=== PATIENT | female | born 1950 | race Caucasian/White ===

== ENCOUNTER 2022-12-18 21:03 | Emergency (ER) | payer OTHER, SELFPAY ==
[2022-12-18 21:20] VITALS: BP 127/70; PULSE 66; RESP 16; TEMP 36.1; O2SAT 96; BMI 24.7
--- NOTE | 2022-12-18 21:21 | CRLHL7_ITS ---
For Patients: As a result of the Century Cures Act, medical imaging exams and procedure reports are released immediately into your electronic medical record. You may view this report before your referring provider. If you have questions, please contact your health care provider. INDICATION: Shortness of breath. Cough. TECHNIQUE: Chest 1 view. COMPARISON: None. FINDINGS: The cardiomediastinal silhouette size is normal. There is no focal pulmonary opacity, pleural effusion or pneumothorax. The visualized osseous structures are unremarkable for age. Impression: No acute cardiopulmonary abnormality. Dictated by Soledad Dubois MD @ 12/18/2022 9:55:14 PM (Electronically Signed)
[2022-12-18 22:04] LABS: Basophils Percent Auto 0.5 % (0.0-3.0); Hematocrit 37.9 % (33.0-51.0); Hemoglobin* 12.9 gm/dL (12.0-16.0); Immature Granulocytes Pct Auto 0.2 %; Mean Corpuscular HGB Conc 34 gm/dL (32-36); Mean Corpuscular Hemoglobin 30 pg (26-34); Mean Corpuscular Volume 88 fL (80-100); Monocytes Percent Auto 8.2 % (0.0-11.0); Neutrophils Percent Auto 78.1 % (42.0-72.0); Platelet Count* 149 K/uL (140-440); RDW Coefficient of Variation % 12.8 % (11.5-15.5); Red Blood Count 4.31 m/uL (4.00-5.20); White Blood Count* 4.15 K/uL (4.50-11.00)
[2022-12-18 22:06] LABS: Slide Review Reflex No
[2022-12-18 22:11] LABS: Chloride* 98 mmol/L (96-114); Potassium* 3.6 mmol/L (3.6-5.1); Sodium* 128 mmol/L (135-149)
[2022-12-18 22:13] LABS: Creatinine* 0.5 mg/dL (0.5-1.5); Estimated Glomerular Filt Rate 101 ml/min
[2022-12-18 22:14] LABS: Anion Gap 10 mEq/L (7-15); Blood Urea Nitrogen* 7 mg/dL (7-30); Carbon Dioxide* 20 mmol/L (20-32); Glucose* 113 mg/dL (60-115)
[2022-12-18 22:15] LABS: Calcium* 8.7 mg/dL (8.4-10.6)
[2022-12-18 22:17] LABS: C Reactive Protein* 0.6 mg/dL (0.5-1.0)
--- NOTE | 2022-12-18 22:18 | ED.GENADULT ---
HPI - General Adult General Date Seen: 12/18/22 Chief complaint: Cough Stated complaint: cough, headache Time Seen by Provider: 12/18/22 21:27 Source: patient Mode of arrival: ambulatory Limitations: no limitations History of Present Illness HPI narrative: Patient is a 72-year-old who presents saying that she has felt unwell for 2 days, sore throat, body aches, fatigue, cough, and she is worried she has COVID. She did not do a test at home. Generally healthy, no significant medications. No underlying pulmonary disease, does not smoke. No fevers or chills, no vomiting but her appetite been decreased. Related Data Previous Rx's Medication Instructions Recorded nirmatrelvir 300 mg (150 mg See Rx Instructions PO .COMPLEX 12/18/22 x2)-ritonavir 100 mg tablet,dose #30 ea pack (Paxlovid) Allergies Allergy/AdvReac Type Severity Reaction Status Date / Time fosimax Allergy Uncoded 12/18/22 21:25 Review of Systems Status of ROS: Reports: 10 or more systems reviewed and unremarkable except as noted in History and below PFSH [facility] Social History Smoking Status: Never smoker Do you use any of these nicotine containing products: None How often do you have a drink containing alcohol: never AUDIT-C Alcohol total score: 0 Non-prescribed substance use: denies use Exam Narrative: Exam Narrative: Vital signs as noted above. In general, an alert, well-appearing patient. Head: Normocephalic, atraumatic. Eyes: Pupils are equal reactive. Extraocular movements are full. Conjunctivae are normal. ENT: Mucous membranes are moist. Throat is normal. Neck: Supple without lymphadenopathy. Heart: Regular rate and rhythm. No murmur or rub. Lungs: Clear bilaterally. No increased work of breathing, crackles or wheezes. Abdomen: Soft and nontender. Extremities: Well perfused. No edema. No calf tenderness. Pulses intact. Neurologic: Patient is alert and oriented to person and place. Speech is fluent. Face is symmetric. Moves all extremities equally. Affect: Normal. Skin: Warm and dry. Well perfused. Const: Vital Signs, click to edit/add: Vital Signs - 24 hr 12/18/22 21:20 12/18/22 22:31 Temperature 97 F L Pulse Rate [Pulse Oximeter] 66 78 Respiratory Rate 16 18 Blood Pressure [Le ft Upper Arm] 127/70 125/63 Pulse Oximetry 96 98 Oxygen Delivery Me thod Room Air Room Air Documenting provider has reviewed patient's vital signs: yes Course Course ED Course: Suspect symptoms are viral, certainly could be COVID. Will test for COVID RSV an influenza, chest x-ray by my review was negative, final radiology read negative. Will give some fluids as she feels that she has not been keeping up. CBC shows a depressed white blood cell count of 4.15, again suggestive of a viral process. Discussed that typically viral infections take 7-10 days and for COVID I often will tell people 10-14 days for improvement. She is interested in Paxlovid if she is positive for COVID. Labs are notable for mild hyponatremia, sodium of 128. Otherwise labs are unremarkable. COVID is positive. Discussed this finding with her, prescribed Paxlovid, reviewed that COVID symptoms typically persistently 7-10 days, sometimes as much as 14. For worsening respiratory symptoms, O2 sats persistently lower than 90%, return to the emergency department. Otherwise, primary care follow-up recommended in a week or so to recheck sodium. Vital Signs Vital signs: Initial Vital Signs Temperature 97 F L 12/18/22 21:20 Temperature Source Temporal Artery Scan 12/18/22 21:20 Pulse Rate 66 12/18/22 21:20 Respiratory Rate 16 12/18/22 21:20 Blood Pressure 127/70 12/18/22 21:20 Blood Pressure Mean 89 12/18/22 21:20 Blood Pressure Position Supine 12/18/22 21:20 Pulse Oximetry 96 12/18/22 21:20 Oxygen Delivery Method Room Air 12/18/22 21:20 Vital Signs Temperature 97 F L 12/18/22 21:20 Pulse Rate 66 12/18/22 21:20 Respiratory Rate 16 12/18/22 21:20 Blood Pressure 127/70 12/18/22 21:20 Pulse Oximetry 96 12/18/22 21:20 Oxygen Delivery Method Room Air 12/18/22 21:20 Temperature 97 F L 12/18/22 21:20 Pulse Rate 78 12/18/22 22:31 Respiratory Rate 18 12/18/22 22:31 Blood Pressure 125/63 12/18/22 22:31 Pulse Oximetry 98 12/18/22 22:31 Oxygen Delivery Method Room Air 12/18/22 22:31 Medical Decision Making Lab Data Labs: Lab Results 12/18/22 Range/Units 21:45 WBC 4.15 L (4.50-11.00) K/uL RBC 4.31 (4.00-5.20) m/uL Hgb 12.9 (12.0-16.0) gm/dL Hct 37.9 (33.0-51.0) % MCV 88 (80-100) fL MCH 30 (26-34) pg MCHC 34 (32-36) gm/dL RDW Coeff of Sammi 12.8 (11.5-15.5) % Plt Count 149 (140-440) K/uL Neut % (Auto) 78.1 H (42.0-72.0) % Lymph % (Auto) 13.0 L (20-44) % Randolph % (Auto) 8.2 (0.0-11.0) % Eos % (Auto) 0.0 (0.0-7.0) % Baso % (Auto) 0.5 (0.0-3.0) % Neut # (Auto) 3.20 (1.7-7.0) K/uL Lymph # (Auto) 0.50 L (0.90-2.90) K/uL Randolph # (Auto) 0.30 (0.00-0.90) K/UL Eos # (Auto) 0.00 (0.00-0.50) K/uL Baso # (Auto) 0.00 (0.00-0.30) K/uL Abs Immat Gran (auto) 0.00 (0.00-0.30) K/uL Imm/Tot Granulo (auto) 0.2 % Sodium 128 L (135-149) mmol/L Potassium 3.6 (3.6-5.1) mmol/L Chloride 98 (96-114) mmol/L Carbon Dioxide 20 (20-32) mmol/L Anion Gap 10 (7-15) mEq/L BUN 7 (7-30) mg/dL Creatinine 0.5 (0.5-1.5) mg/dL Estimated Creat Clear 41.40 Estimated GFR 101 ml/min Glucose 113 (60-115) mg/dL Calcium 8.7 (8.4-10.6) mg/dL C-Reactive Protein 0.6 (0.5-1.0) mg/dL SARS-CoV-2 (PCR) POSITIVE SARS-CoV-2 A (Negative) Influenza Type A (PCR) Negative PCR FLU A (Negative) Influenza Type B (PCR) Negative PCR FLU B (Negative) RSV (PCR) Negative PCR RSV (Negative) Discharge Plan Discharge Clinical Impression: COVID-19 Patient Disposition: Home, Self-Care Condition: Stable Instructions: COVID-19 (Coronavirus Disease 2019) (ED) Additional Instructions: Paxlovid as prescribed. Tylenol 1000 mg 3 times daily as needed for fever or aches. For worsening respiratory symptoms, O2 sats persistently below 90%, return to the emergency department. Your sodium is slightly low today, this can be rechecked at your clinic next week. Prescriptions: New Paxlovid 300 mg (150 mg x 2)-100 mg tablets,dose pack See Rx Instructions .ROUTE .COMPLEX Qty: 30 0RF Rx Instructions: take TWO 150 mg tablets of nirmatrelvir with ONE 100 mg tablet of ritonavir twice daily for 5 days Follow Up/Referrals: Sosa Cheng MD [Primary Care Provider] - Stand Alone Forms: [employer] Info Instructions
[2022-12-18 22:31] VITALS: BP 125/63; PULSE 78; RESP 18; O2SAT 98
[2022-12-18 22:34] LABS: PCR FLU A Negative PCR FLU A (Negative); PCR FLU B Negative PCR FLU B (Negative); PCR RSV Negative PCR RSV (Negative)
[2022-12-18 22:35] LABS: SARS PCR* POSITIVE SARS-CoV-2 (Negative)
== END 2022-12-18 23:29 | disposition home or self-care (01) ==
LOC: ED 22:59
PROVIDERS: Emergency Provider Emergency Medicine; PCP Family Medicine
DX: U07.1 COVID-19 (principal)
CPT/HCPCS: 36415; 71045; 80048; 85025; 86140; 87631; 99283; 99284

== ENCOUNTER 2022-12-21 10:14 | Emergency (ER) | payer OTHER, SELFPAY ==
[2022-12-21] VITALS (18 sets, daily range): BP systolic 132–149; BP diastolic 69–98; PULSE 61–75; RESP 18–20; TEMP 36.1–36.8; O2SAT 74–100
--- NOTE | 2022-12-21 12:37 | ED_ITS ---
HPI - General Adult General Date Seen: 12/21/22 Chief complaint: Cough Stated complaint: COVID + Time Seen by Provider: 12/21/22 10:58 Source: patient Mode of arrival: ambulatory Limitations: no limitations History of Present Illness HPI narrative: Patient is a 72-year-old female with history of osteoporosis presented to the emergency department for COVID. She states she 1st developed symptoms 5 days ago and was here 3 days ago it was given Paxil of it. She says that she has BC the packs of it she is having laying flat and is causing her to cough severely every time she does. She does also states symptoms are worse at night. She feels like her throat is closing up and states it was hard to breathe sometimes but denies any chest pain. Had a fever 4 days ago. Denies nausea, vomiting, weakness, diarrhea, constipation, vision changes, lightheadedness, dizziness. She states the packs of it is not working at all and she came to to get monoclonal antibodies. Related Data Previous Rx's Medication Instructions Recorded nirmatrelvir 300 mg (150 mg See Rx Instructions PO .COMPLEX 12/18/22 x2)-ritonavir 100 mg tablet,dose #30 ea pack (Paxlovid) Allergies Allergy/AdvReac Type Severity Reaction Status Date / Time fosimax Allergy Uncoded 12/18/22 21:25 Review of Systems Status of ROS: Reports: 10 or more systems reviewed and unremarkable except as noted in History and below [facility] Social History Smoking Status: Never smoker Do you use any of these nicotine containing products: None How often do you have a drink containing alcohol: never AUDIT-C Alcohol total score: 0 Non-prescribed substance use: denies use service: No Exam Narrative: Exam Narrative: Const: Well-nourished, Well-developed, in mild distress Eyes: PERRL, no conjunctival injection, and symmetrical lids HENT: Atraumatic external nose and ears. Moist mucous membranes. Neck: Symmetric, trachea midline, No thyromegaly. CVS: RRR, No murmurs or gallops. Peripheral pulses 2+ and equal in all extremities RESP: Unlabored respiratory effort. Clear to auscultation bilaterally. GI: Nontender/Nondistended, No rebound or guarding. MSK:Extremities w/o deformity, Normal Active ROM Skin: Warm, Dry. No rashes or lesions. Neuro: Normal Muscle tone, No focal neurological deficits. Psych: Awake, Alert, & Oriented x3. Appropriate mood and affect. Const: Vital Signs, click to edit/add: Vital Signs - 24 hr 12/21/22 10:23 12/21/22 11:00 12/21/22 11:33 Temperature 98.2 F Pulse Rate 66 Pulse Rate [Pulse Oximeter] 73 75 Respiratory Rate 18 20 Blood Pressure 137/98 H Blood Pressure [Ri ght Upper Arm] 144/72 H 132/74 Pulse Oximetry 74 L 98 98 Oxygen Delivery Me thod Room Air Room Air 12/21/22 11:34 12/21/22 11:45 12/21/22 12:00 Temperature Pulse Rate 62 66 63 Pulse Rate [Pulse Oximeter] Respiratory Rate Blood Pressure Blood Pressure [Ri ght Upper Arm] Pulse Oximetry 97 98 98 Oxygen Delivery Me thod 12/21/22 12:02 12/21/22 12:15 12/21/22 12:30 Temperature Pulse Rate 73 65 69 Pulse Rate [Pulse Oximeter] Respiratory Rate Blood Pressure 149/73 H Blood Pressure [Ri ght Upper Arm] Pulse Oximetry 100 98 99 Oxygen Delivery Me thod 12/21/22 12:32 12/21/22 12:45 12/21/22 13:00 Temperature Pulse Rate 64 61 61 Pulse Rate [Pulse Oximeter] Respiratory Rate Blood Pressure 135/75 Blood Pressure [Ri ght Upper Arm] Pulse Oximetry 98 98 98 Oxygen Delivery Me thod 12/21/22 13:02 12/21/22 13:15 12/21/22 13:28 Temperature 97 F L Pulse Rate 71 64 Pulse Rate [Pulse Oximeter] Respiratory Rate Blood Pressure 132/71 Blood Pressure [Ri ght Upper Arm] Pulse Oximetry 97 99 Oxygen Delivery Me thod 12/21/22 13:30 12/21/22 13:31 12/21/22 13:45 Temperature Pulse Rate 64 64 64 Pulse Rate [Pulse Oximeter] Respiratory Rate Blood Pressure 144/69 H Blood Pressure [Ri ght Upper Arm] Pulse Oximetry 98 98 98 Oxygen Delivery Me thod Course Vital Signs Vital signs: Initial Vital Signs Temperature 98.2 F 12/21/22 10:23 Temperature Source Temporal Artery Scan 12/21/22 10:23 Pulse Rate 73 12/21/22 10:23 Respiratory Rate 18 12/21/22 10:23 Blood Pressure 144/72 H 12/21/22 10:23 Blood Pressure Mean 96 12/21/22 10:23 Blood Pressure Position Sitting 12/21/22 10:23 Pulse Oximetry 74 L 12/21/22 10:23 Oxygen Delivery Method Room Air 12/21/22 10:23 Vital Signs Temperature 98.2 F 12/21/22 10:23 Pulse Rate 73 12/21/22 10:23 Respiratory Rate 18 12/21/22 10:23 Blood Pressure 144/72 H 12/21/22 10:23 Pulse Oximetry 74 L 12/21/22 10:23 Oxygen Delivery Method Room Air 12/21/22 10:23 Temperature 97 F L 12/21/22 13:28 Pulse Rate 64 12/21/22 13:45 Respiratory Rate 20 12/21/22 11:00 Blood Pressure 144/69 H 12/21/22 13:31 Pulse Oximetry 98 12/21/22 13:45 Oxygen Delivery Method Room Air 12/21/22 11:00 Medical Decision Making MDM Narrative Medical decision making narrative: Patient is a 72-year-old female presenting emergency department for cough shortness of breath with COVID. Her vital signs are stable. She is satting well on room air. She started Paxil of it 3 days ago. Symptoms started 5 days ago. She is concerned he her airway is closing up but this time lung sounds are normal no stridor is heard. She also states she is feeling much worse and does not think the Paxil if it is working. Considering she is high risk per CDC guidelines due to her age she does meet criteria for remdesivir transfusion outpatient. We will give her 1 dose here in the emergency department and she had the next 2 doses outpatient. This was set up with her and med [facility], who will be doing the transfusion. We also query cbc and BMP. His CBC shows low white blood cells which is likely from the COVID. Repeat BMP shows an improved sodium compared to 3 days ago. She is otherwise doing well will be discharged home. Lab Data Labs: Lab Results 12/21/22 Range/Units 12:37 WBC 2.85 L (4.50-11.00) K/uL RBC 4.39 (4.00-5.20) m/uL Hgb 13.0 (12.0-16.0) gm/dL Hct 38.4 (33.0-51.0) % MCV 88 (80-100) fL MCH 30 (26-34) pg MCHC 34 (32-36) gm/dL RDW Coeff of Sammi 12.7 (11.5-15.5) % Plt Count 141 (140-440) K/uL Neut % (Auto) 55.0 (42.0-72.0) % Lymph % (Auto) 33.7 (20-44) % [place] % (Auto) 9.5 (0.0-11.0) % Eos % (Auto) 1.4 (0.0-7.0) % Baso % (Auto) 0.4 (0.0-3.0) % Neut # (Auto) 1.60 L (1.7-7.0) K/uL Lymph # (Auto) 1.00 (0.90-2.90) K/uL [place] # (Auto) 0.30 (0.00-0.90) K/UL Eos # (Auto) 0.00 (0.00-0.50) K/uL Baso # (Auto) 0.00 (0.00-0.30) K/uL Abs Immat Gran (auto) 0.00 (0.00-0.30) K/uL Imm/Tot Granulo (auto) 0.0 % Sodium 134 L (135-149) mmol/L Potassium 3.7 (3.6-5.1) mmol/L Chloride 99 (96-114) mmol/L Carbon Dioxide 26 (20-32) mmol/L Anion Gap 9 (7-15) mEq/L BUN 2 L (7-30) mg/dL Creatinine 0.4 L (0.5-1.5) mg/dL Estimated GFR 106 ml/min Glucose 90 (60-115) mg/dL Calcium 9.0 (8.4-10.6) mg/dL Discharge Plan Discharge Clinical Impression: COVID-19 Patient Disposition: Home, Self-Care Condition: Stable Instructions: COVID-19 (Coronavirus Disease 2019) (ED) Additional Instructions: Return to the [facility] tomorrow and Monday after 16:00 to have your 2nd and 3rd round of your remdesivir. Return for new or worsening symptoms. Prescriptions: No Action Paxlovid 300 mg (150 mg x 2)-100 mg tablets,dose pack See Rx Instructions .ROUTE .COMPLEX Qty: 30 0RF Rx Instructions: take TWO 150 mg tablets of nirmatrelvir with ONE 100 mg tablet of ritonavir twice daily for 5 days Follow Up/Referrals: Sosa Cheng MD [Primary Care Provider] - Stand Alone Forms: [employer] Info Instructions
[2022-12-21 12:47] LABS: Basophils Percent Auto 0.4 % (0.0-3.0); Eosinophils Percent Auto 1.4 % (0.0-7.0); Hematocrit 38.4 % (33.0-51.0); Lymphocytes Percent Auto 33.7 % (20-44); Mean Corpuscular HGB Conc 34 gm/dL (32-36); Mean Corpuscular Hemoglobin 30 pg (26-34); Mean Corpuscular Volume 88 fL (80-100); Monocytes Percent Auto 9.5 % (0.0-11.0); Platelet Count* 141 K/uL (140-440); RDW Coefficient of Variation % 12.7 % (11.5-15.5); Red Blood Count 4.39 m/uL (4.00-5.20); White Blood Count* 2.85 K/uL (4.50-11.00)
[2022-12-21 12:48] LABS: Slide Review Reflex No
[2022-12-21 12:57] LABS: Chloride* 99 mmol/L (96-114); Sodium* 134 mmol/L (135-149)
[2022-12-21 12:58] LABS: Potassium* 3.7 mmol/L (3.6-5.1)
[2022-12-21 13:00] LABS: Anion Gap 9 mEq/L (7-15); Carbon Dioxide* 26 mmol/L (20-32); Creatinine* 0.4 mg/dL (0.5-1.5); Estimated Glomerular Filt Rate 106 ml/min
[2022-12-21 13:01] LABS: Blood Urea Nitrogen* 2 mg/dL (7-30); Glucose* 90 mg/dL (60-115)
== END 2022-12-21 14:01 | disposition home or self-care (01) ==
PROVIDERS: Emergency Provider Student in an Organized Health Care Education/Training Program; PCP Family Medicine
DX: U07.1 COVID-19 (principal)
CPT/HCPCS: 36415; 80048; 85025; 99283; J7050